=== PATIENT | female | born 1950 | race Caucasian/White ===

== ENCOUNTER → 2023-02-23 11:03 | Outpatient (CLI) | payer BC, SELFPAY ==
--- NOTE | ~2023-02-23 | CT_ITS ---
EXAMINATION: CT brain wo con DATE: 02/23/2023 11:18 INDICATION: Progressive memory impairment. Amnesia. Lightheadedness. TECHNIQUE: Computed tomography (CT) of the head was performed without intravenous contrast. The mA wa s adjusted according to patient size. Iterative reconstruction technique was employed. Exam dose: 59 9.57 mGy-cm total exam DLP. COMPARISON: None FINDINGS: No intracranial mass lesion or hemorrhage or cerebrovascular accident is detected. No midli ne shift or mass effect. There is cerebral atherosclerotic calcification. There is nonspecific diminished attenuation of the c erebral white matter, likely due to chronic small vessel ischemic changes. No subdural or epidural hematoma. There is an opacified left ethmoid air cell. The paranasal sinuses and mastoid air cells are otherwis e unremarkable. No fracture or bone destruction of the cranial vault. IMPRESSION: Cerebral atherosclerosis and chronic small vessel ischemic changes of cerebral white mat ter No acute intracranial finding Reviewed, dictated and finalized at [facility]. Reviewed, dictated and finalized at [facility]. IMPRESSION: Cerebral atherosclerosis and chronic small vessel ischemic changes of cerebral white matter No acute intracranial finding
== END ==
PROVIDERS: PCP Internal Medicine; Visit Provider Internal Medicine
DX: R41.3 Other amnesia (principal); I67.2 Cerebral atherosclerosis
CPT/HCPCS: 70450